=== PATIENT | female | born 1950 | race Caucasian/White ===

== ENCOUNTER → 2016-04-22 | Outpatient (CLI) | payer OTHER | LOC: FIMAGING 11:57 | DX: Z12.31 Encounter for screening mammogram for malignant neoplasm of breast (principal); Z85.3 Personal history of malignant neoplasm of breast | CPT/HCPCS: G0202 ==

== ENCOUNTER → 2017-04-24 | Outpatient (CLI) | payer OTHER | LOC: FIMAGING 10:23 | PROVIDERS: ATTEND Internal Medicine | DX: Z12.31 Encounter for screening mammogram for malignant neoplasm of breast (principal); Z85.3 Personal history of malignant neoplasm of breast ==

== ENCOUNTER → 2018-04-26 | Outpatient (CLI) | payer OTHER | LOC: FIMAGING 09:51 | PROVIDERS: ATTEND Internal Medicine | DX: Z12.31 Encounter for screening mammogram for malignant neoplasm of breast (principal); Z85.3 Personal history of malignant neoplasm of breast ==